=== PATIENT | female | born 1935 | race Caucasian/White ===

== ENCOUNTER 2016-10-25 13:26 | Emergency (ER) | payer MEDICARE, BC ==
[2016-10-25 13:42] VITALS: BP 117/65
--- NOTE | 2016-10-25 14:00 | UC ---
Throat Pain/Nasal Jermaine HPI - HPI Summary HPI Summary: Patient has had on and off sore throat pain for the past five days, is worried becasue her temp was elevated to 99.9 - History of Current Complaint Chief Complaint: UCRespiratory Stated Complaint: THROAT Time Seen by Provider: 10/25/16 13:46 Hx Obtained From: Patient Hx Last Menstrual Period: n/a ?: No Onset/Duration: Sudden Onset, Lasting Days Severity: Moderate Cough: None Associated Signs & Symptoms: Positive: Dysphagia - Allergies/Home Medications Allergies/Adverse Reactions: Allergies Allergy/AdvReac Type Severity Reaction Status Date / Time No Known Allergies Allergy Verified 10/25/16 13:41 Home Medications: Home Medications Metoprolol Tartrate TAB* [Lopressor TAB*] 12.5 mg PO DAILY 10/25/16 [History Confirmed 10/25/16] PMH/Surg Hx/FS Hx/Imm Hx Previously Healthy: Yes - Surgical History Surgical History: Yes Surgery Procedure, Year, and Place: b/l knee replacements, cholecystitis, appy - Family History Known Family History: Positive: Cardiac Disease - Social History Alcohol Use: "a glass of wine ... once or twice a week" Substance Use Type: None Smoking Status (MU): Former Smoker Type: Cigarettes Length of Time of Smoking/Using Tobacco: 3 Years Have You Smoked in the Last Year: No Review of Systems Constitutional: Negative Skin: Negative Eyes: Negative ENT: Sore Throat Respiratory: Negative Cardiovascular: Negative Gastrointestinal: Negative Genitourinary: Negative Motor: Negative Neurovascular: Negative Musculoskeletal: Negative Neurological: Negative Psychological: Negative All Other Systems Reviewed And Are Negative: Yes Physical Exam Triage Information Reviewed: Yes Appearance: Well-Appearing, Well-Nourished, Pain Distress Vital Signs: Initial Vital Signs Temp 99.4 F 10/25/16 13:37 Pulse 75 10/25/16 13:37 Resp 16 10/25/16 13:37 BP 117/65 10/25/16 13:37 Pulse Ox 99 10/25/16 13:37 Vital Signs Reviewed: Yes Eye Exam: Normal Eyes: Positive: Conjunctiva Clear ENT: Positive: Hearing grossly normal, Pharyngeal erythema, TMs normal Dental Exam: Normal Neck exam: Normal Respiratory Exam: Normal Respiratory: Positive: Chest non-tender, Lungs clear, Normal breath sounds Cardiovascular: Positive: No Murmur, Pulses Normal, Murmur:Sys:Grade _?_/ - 2 Abdominal Exam: Normal Abdomen Description: Positive: Nontender, No Organomegaly, Soft Bowel Sounds: Positive: Present Musculoskeletal Exam: Normal Musculoskeletal: Positive: Other: - walkes with a cane Neurological Exam: Normal Psychological Exam: Normal Skin Exam: Normal Throat Pain/Nasal Course/Dx - Course Course Of Treatment: hx obtained, exam performed, meds reviewed rapid strep was negative - Differential Dx/Diagnosis Differential Diagnosis/HQI/PQRI: Influenza, Otitis Media, Pharyngitis, Sinusitis , URI Provider Diagnoses: pharynigitis Discharge - Discharge Plan Condition: Stable Disposition: HOME Patient Education Materials: Pharyngitis (ED) Referrals: Anthony VICTOR,Kristina Ledbetter [Primary Care Provider] - Additional Instructions: 1. Gargle with salt water 2. Increase fluid intake 3. Tylenol as needed for pain or fever 4. Follow up with any increase in symptoms. 5. Your strep test was negative
== END 2016-10-25 14:25 | disposition home or self-care (01) ==
LOC: UCCORT 13:26
DX: J02.9 Acute pharyngitis, unspecified (principal); Z96.653 Presence of artificial knee joint, bilateral; Z90.49 Acquired absence of other specified parts of digestive tract; Z87.891 Personal history of nicotine dependence
CPT/HCPCS: 87651; 99211; G0463

== ENCOUNTER 2018-03-31 08:26 | Emergency (ER) | payer MEDICARE, BC ==
[2018-03-31 08:42] VITALS: BP 132/59
--- NOTE | 2018-03-31 08:52 | UC ---
Throat Pain/Nasal Jermaine HPI - HPI Summary HPI Summary: Patient has had the sore throat for about 4 days, did take a few days of left over keflex she had at home, no fever, body aches or chills. - History of Current Complaint Chief Complaint: UCGeneralIllness Stated Complaint: ST Time Seen by Provider: 03/31/18 08:38 Hx Obtained From: Patient Hx Last Menstrual Period: n/a ?: No Onset/Duration: Sudden Onset, Lasting Days - 4 Severity: Mild Pain Intensity: 0 - Allergies/Home Medications Allergies/Adverse Reactions: Allergies Allergy/AdvReac Type Severity Reaction Status Date / Time No Known Allergies Allergy Verified 03/31/18 08:42 Home Medications: Home Medications Atorvastatin* [Lipitor*] 10 mg PO DAILY 03/31/18 [History Confirmed 03/31/18] PMH/Surg Hx/FS Hx/Imm Hx Previously Healthy: Yes - Surgical History Surgical History: Yes Surgery Procedure, Year, and Place: b/l knee replacements, cholecystitis, appy, aorta replaced, double bypass, R ankle replacement - Family History Known Family History: Positive: Cardiac Disease - Social History Alcohol Use: "a glass of wine ... once or twice a week" Substance Use Type: None Smoking Status (MU): Former Smoker Type: Cigarettes Length of Time of Smoking/Using Tobacco: 3 Years Have You Smoked in the Last Year: No Review of Systems All Other Systems Reviewed And Are Negative: Yes Constitutional: Positive: Negative Skin: Positive: Negative Eyes: Positive: Negative ENT: Positive: Sore Throat Respiratory: Positive: Negative Cardiovascular: Positive: Negative Gastrointestinal: Positive: Negative Genitourinary: Positive: Negative Motor: Positive: Negative Neurovascular: Positive: Negative Musculoskeletal: Positive: Negative Neurological: Positive: Negative Psychological: Positive: Negative Is Patient Immunocompromised?: No Physical Exam Triage Information Reviewed: Yes Appearance: Well-Appearing, Well-Nourished, Pain Distress Vital Signs: Initial Vital Signs Temp 98.8 F 03/31/18 08:38 Pulse 64 03/31/18 08:38 Resp 15 03/31/18 08:38 BP 132/59 03/31/18 08:38 Pulse Ox 96 03/31/18 08:38 Vital Signs Reviewed: Yes Eye Exam: Normal ENT: Positive: Pharyngeal erythema, TMs normal Dental Exam: Normal Neck exam: Normal Respiratory Exam: Normal Respiratory: Positive: Chest non-tender, Lungs clear, Normal breath sounds Cardiovascular Exam: Normal Cardiovascular: Positive: RRR, No Murmur, Pulses Normal Abdominal Exam: Normal Abdomen Description: Positive: Nontender, No Organomegaly, Soft Bowel Sounds: Positive: Present Musculoskeletal Exam: Normal Neurological Exam: Normal Psychological Exam: Normal Skin Exam: Normal Throat Pain/Nasal Course/Dx - Course Course Of Treatment: hx obtained, exam performed ,meds reviewed, educated on treatment of symptoms - Differential Dx/Diagnosis Differential Diagnosis/HQI/PQRI: Laryngitis, Pharyngitis, Sinusitis Provider Diagnoses: pharyngitis Discharge - Sign-Out/Discharge Documenting (check all that apply): Patient Departure All imaging exams completed and their final reports reviewed: No Studies - Discharge Plan Condition: Stable Disposition: HOME Patient Education Materials: Pharyngitis (ED) Referrals: Anthony VICTOR,Kristina Ledbetter [Primary Care Provider] - Additional Instructions: 1. Gargle with salt water 2. Tea with honey and nichole and lemon 3. Increase fluids and get rest. - Billing Disposition and Condition Condition: STABLE Disposition: Home
== END 2018-03-31 09:02 | disposition home or self-care (01) ==
LOC: UCCORT 08:26
DX: J02.9 Acute pharyngitis, unspecified (principal); Z87.891 Personal history of nicotine dependence
CPT/HCPCS: 99211; G0463